=== PATIENT | female | born 1945 | race Caucasian/White ===

== ENCOUNTER 2018-03-22 05:10 | Inpatient (IN) ==
[2018-03-22] MEDS ORDERED: Metoprolol Tartrate 25 MG Tablet PO SCH (05:45)
[2018-03-22] MEDS ORDERED: Chlorhexidine 4% Topical 120 APPLIC/120 ML Bottle TOPICAL SCH (05:45)
[2018-03-22] MEDS ORDERED: Chlorhexidine Gluconate 2% 1 Pack (2 Cloths) TOPICAL SCH (05:45)
[2018-03-22] MEDS ORDERED: ceFAZolin 2 GM Premix Inj 2 GM/100 ML BAG IV.SIG SCH (06:00)
[2018-03-22] MEDS ORDERED: Vancomycin Inj 1,000 MG in Sodium Chlor 0.9% Inj 250 ML IV.SIG SCH (06:00)
[2018-03-22] MEDS ORDERED: Sodium Chlor 0.9% Inj 500 ML IV.SIG SCH (06:00)
[2018-03-22] MEDS ORDERED: Bupivacaine/Epinephrine Inj 0.25% 50 ML Vial ONE (07:10)
[2018-03-22] MEDS ORDERED: Bupivacaine/Dextrose 0.75% Inj 2 ML Ampul ONE (07:11)
[2018-03-22] MEDS ORDERED: SODIUM CHLOR 0.9% IV.SIG SCH (07:30)
[2018-03-22] MEDS ORDERED: Sodium Chlor 0.9% Inj 40 ML, Bupivacaine Liposo PF 1.3% Inj 20 ML P-ARTICULR SCH ×2 (07:30)
[2018-03-22] MEDS ORDERED: TRANEXAMIC ACID IV.SIG SCH (07:30)
[2018-03-22] MEDS ORDERED: Temazepam 15 MG Capsule PO PRN (10:02)
[2018-03-22] MEDS ORDERED: Bisacodyl 10 MG Supp RECTAL PRN (10:02)
[2018-03-22] MEDS ORDERED: Post-op Orders (for Pharmacy) OTHER STA (10:02)
--- NOTE | 2018-03-22 10:16 | P.OP ---
- Preoperative Diagnosis (1) Osteoarthritis of left knee - Postoperative Diagnosis (1) Osteoarthritis of left knee Date of procedure: 03/22/18 Procedure: Left total knee replacement arthroplasty, posterior stabilized Anesthesia: GETA Surgeon: Catalino Agnel MD [employer] Worker: Beba Bailey PA-C Operation and Findings: EBL: 50 cc INDICATION: This patient presents with long-standing arthritis of the knee. Attachment record documents conservative measures. The patient now presents for surgical treatment. NOTE: Beba Bailey PA-C was present for the entire surgical procedure as my first aid director. In my medical opinion her skill and care was necessary for proper management of this patient. TOURNIQUET TIME: 62 minutes COMPANY: [employer] FEMUR: Size 6, posterior stabilized TIBIA: Size 6, fixed-bearing PATELLA: 35 mm POLYETHYLENE INSERT: 10 mm PROCEDURE: This patient was brought the operating room and anesthetized in the supine position. The patient was positioned supine on the table. The tourniquet was placed about the thigh, and the leg was scrubbed with alcohol followed by Hibiclens followed by ChloraPrep and draped sterilely. A timeout was done, and antibiotics were given. After exsanguination the tourniquet was inflated to 300 mmHg. An anterior incision was made and a median parapatellar arthrotomy was performed. The patella was released laterally and subluxed allowing freehand cut of the patella which was then sized. A metal cap was placed over the exposed patellar surface for protection. A banquet pilot hole was placed in the distal femur allowing a 5 valgus cut removing mm from the distal femur. Anterior posterior and chamfer cuts were made. The posterior stabilize osteotomy was made. The attention was directed to the tibia. Retractors were positioned. The external alignment guide was used allowing the lateral tibia to be used as referencing guide and cut utilizing an oscillating saw taking care to avoid any injury to the surrounding soft tissues. This was sized properly. Trial reduction showed that the insert fit nicely. The patient had range of motion extension 0 flexion 120. A medial release was not necessary. The bony surfaces prepared. On the back table 2 packets of methylmethacrylate were mixed. The components were cemented. Excess cement was removed. The tourniquet let down and hemostasis was controlled. The final plastic insert was inserted. Range of motion was the same as previously noted. A drain was brought through a separate stab incision. The arthrotomy was repaired with interrupted #1 Vicryl suture, subcutaneous tissue 2-0 Vicryl suture and skin with metallic jess A sterile dressing was applied. Sponge counts, needle counts and instrument counts were all correct. The patient tolerated procedure well and was taken to recovery in satisfactory condition. FINDINGS: There was severe loss of bone posterior medial tibial plateau. Significant synovitis was seen consistent with an inflammatory arthropathy mixed with a combination of osteoarthritis. The final solution appeared to be excellent
[2018-03-22] MEDS ORDERED: fentaNYL Citrate Inj 100 MCG/2 ML Ampul ONE ×2 (10:41)
[2018-03-22] MEDS ORDERED: *morphine SULFATE 10 MG/ML PERIprocedure ONLY ONE (10:59)
--- NOTE | 2018-03-22 11:35 | XR ---
EXAM DATE: 03/22/2018 11:31 AM EDT AGE/SEX: 73 years / Female INDICATIONS: Post op right knee surgery. CLINICAL DATA: This is the patient's initial encounter. Patient reports that signs and symptoms have been present for 1 day and indicates a pain score of 3/10. MEDICAL/SURGICAL HISTORY: . Unobtainable. . Unobtainable. COMPARISON: No prior exams available for comparison. FINDINGS: Total knee arthroplasty is in place. The femoral, tibial, and patellar components appear intact. There are no signs of loosening or fracture. CONCLUSION: Intact total knee arthroplasty for technique. Electronically signed by: Amber Welch MD 03/22/2018 11:34 AM EDT
[2018-03-22] MEDS ORDERED: *morphine SULFATE 4 MG/ML PERIprocedure ONLY ONE (12:28)
[2018-03-22] MEDS ORDERED: HYDROmorphone PF Inj 2 MG/ML Vial ONE (12:53)
[2018-03-22] MEDS ORDERED: *Ondansetron Inj 4 MG/2 ML Vial PERIprocedural Use ONLY ONE (15:10)
[2018-03-22] MEDS ORDERED: *Promethazine Inj 25 MG/ML Vial PERIprocedural use ONLY ONE (15:22)
[2018-03-22] MEDS ORDERED: Lidocaine PF 1% Inj 5 ML Syringe INFILTRATN ONE (17:50)
[2018-03-22] MEDS ORDERED: Glycopyrrolate Inj 1 MG/5 ML Syringe IV.PUSH ONE (17:50)
[2018-03-22] MEDS ORDERED: Neostigmine Inj 5 MG/5 ML Syringe IV.PUSH ONE (17:50)
[2018-03-22] MEDS ORDERED: Phenylephrine/NS 1000 MCG/10ML Syringe IV.PUSH ONE (17:50)
[2018-03-22] MEDS ORDERED: Succinylcholine Inj 100 MG/5 ML Syringe IV.PUSH ONE (17:50)
[2018-03-22] MEDS ORDERED: Esmolol Bolus Inj 100 MG/10 ML Vial IV.PUSH ONE (17:50)
[2018-03-22] MEDS: Multivitamin/Minerals Therapeutic Tablet PO SCH (21:10)
[2018-03-22] MEDS: Senna/Docusate Sodium 8.6/50 MG Tablet PO SCH (21:10)
[2018-03-22] MEDS: Morphine Inj 4 MG/ML Vial IV.PUSH PRN (21:11)
[2018-03-23] MEDS: Morphine Inj 4 MG/ML Vial IV.PUSH PRN ×3 (00:42→07:56)
[2018-03-23] MEDS: Levothyroxine 100 MCG Tablet PO SCH (06:50)
[2018-03-23] MEDS: Multivitamin/Minerals Therapeutic Tablet PO SCH ×2 (08:00→22:20)
[2018-03-23] MEDS: Lisinopril 10 MG Tablet PO SCH (08:00)
[2018-03-23] MEDS: Senna/Docusate Sodium 8.6/50 MG Tablet PO SCH ×2 (08:00→22:19)
--- NOTE | 2018-03-23 16:25 | P.PNOP ---
Subjective Interval history: She is struggling substantially with pain. 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 Apparently her nurse spoke to her about Roxicodone. They are working on changing her medication. She denies any other leg symptoms. She has not been out of bed. She had some nausea this morning due to a headache. Physical Exam Vital signs: Vital Signs 03/22/18 20:00 03/23/18 00:00 03/23/18 04:00 Temperature 98.4 F 98.6 F 98.1 F Pulse Rate 82 76 93 H Respiratory Rate 17 17 19 Blood Pressure 137/66 162/69 H 136/65 Pulse Oximetry 99 100 98 03/23/18 08:00 03/23/18 12:00 Temperature 99.7 F H Pulse Rate 99 H Respiratory Rate 18 18 Blood Pressure 136/68 Pulse Oximetry 92 L Intake & Output 03/22/18 03/23/18 03/23/18 18:59 06:59 18:59 Intake Total 2600 / 2600 1680 / 1680 100 / 100 Output Total 150 / 150 Balance 2450 / 2450 1680 / 1680 100 / 100 Intake: IV 1560 / 1560 1200 / 1200 100 / 100 LR 1000 mL Inj 1,000 ML @ 80 1000 / 1000 100 / 100 mls/hr IV.CONT .[id number] AMAYA Rx# :[id number] LR 1000 mL Inj 1,000 ML @ 30 1000 / 1000 mls/hr IV.SIG .Q24H AMAYA Rx#: [id number] Cyklokapron Inj 947 MG In NS 110 / 110 Inj 100 ML @ 200 mls/hr IV.SIG ONCE AMAYA Rx#:[id number] Vancomycin Inj 1,000 MG In NS 250 / 250 Inj 250 ML @ 250 mls/hr IV.SIG RETAIL LOAN ORIGINATOR AMAYA Rx#:[id number] Ancef 2 GM Premix Inj 2 gm In 100 / 100 100 ml @ 200 mls/hr IV.SIG RETAIL LOAN ORIGINATOR AMAYA Rx#:[id number] Ancef Inj 1,000 MG In NS Inj 100 / 100 200 / 200 100 ML @ 200 mls/hr IV.SIG Q6H AMAYA Rx#:[id number] Oral 240 / 240 480 / 480 Anesthesia Amount 800 / 800 Output: Estimated Blood Loss 150 / 150 Other: # Voids 1 # Emeses 1 Narrative: Laying in bed NAD but anxious Not wearing brace Left LE Knee dressing c/d/i, mild swelling, no obvious erythema +motor at distal, +sens, +nvi neg homans - Constitutional no acute distress Results - Procedures Left total knee arthroplasty Assessment and Plan - Ortho Post Op Day # 1 - Assessment and Plan pod#1 s/p Left tka She is struggling with pain. They are starting her on roxicodone. PT - WBAT Left LE. I highly encouraged ROM as she is not motivated to do so. Hold dressing changes unless saturated. ASA 81mg bid. D/C planning - likely SNF wednesday as she has no assistance at home. DME written.
[2018-03-24] MEDS: Levothyroxine 100 MCG Tablet PO SCH (05:12)
[2018-03-24] MEDS: Lisinopril 10 MG Tablet PO SCH (11:13)
[2018-03-24] MEDS: Multivitamin/Minerals Therapeutic Tablet PO SCH ×2 (11:13→21:28)
[2018-03-24] MEDS: Senna/Docusate Sodium 8.6/50 MG Tablet PO SCH ×2 (11:13→21:29)
--- NOTE | 2018-03-24 17:38 | P.PNOP ---
Subjective Interval history: Doing well Cleared for d/c to snf mod pain Physical Exam Vital signs: Vital Signs 03/23/18 20:00 03/23/18 23:00 03/24/18 00:00 Temperature 99.8 F H 98.6 F Pulse Rate 107 H 100 H Respiratory Rate 17 18 17 Blood Pressure 130/60 123/67 Pulse Oximetry 93 L 92 L 03/24/18 04:00 03/24/18 05:45 03/24/18 08:00 Temperature 98.7 F 98.2 F Pulse Rate 115 H 101 H Respiratory Rate 18 18 18 Blood Pressure 134/68 123/64 Pulse Oximetry 92 L 93 L 03/24/18 12:00 Temperature 100.1 F H Pulse Rate 111 H Respiratory Rate 20 Blood Pressure 134/74 Pulse Oximetry 92 L Intake & Output 03/23/18 03/24/18 03/24/18 18:59 06:59 18:59 Intake Total 2049 Balance 2049 Weight 94.4 kg Intake: IV 100 / 100 1999 LR 1000 mL Inj 1,000 ML @ 80 100 / 100 1000 / 1000 mls/hr IV.CONT .[id number] AMAYA Rx# :[id number] LR 1000 mL Inj 1,000 ML @ 30 1000 / 1000 mls/hr IV.SIG .Q24H AMAYA Rx#: [id number] Oral 1949 Other: # Voids 2 5 Date of Last Bowel Movement 03/24/18 # Bowel Movements 0 Narrative: Laying in bed NAD but anxious Not wearing brace Left LE Knee dressing c/d/i, mild swelling, no obvious erythema +motor at distal, +sens, +nvi neg homans Results - Procedures Left total knee arthroplasty Assessment and Plan - Assessment and Plan pod#2 s/p Left tka Better on roxycodone. PT - WBAT Left LE. I highly encouraged ROM as she is not motivated to do so. Hold dressing changes unless saturated. ASA 81mg bid. D/C planning - likely SNF today as she has no assistance at home. DME written. Meds written
[2018-03-25] MEDS: Levothyroxine 100 MCG Tablet PO SCH (05:35)
--- NOTE | 2018-03-25 07:38 | P.DS ---
Date of admission: 03/22/18 05:10 Primary care physician: Benito Espinoza MD Attending physician on discharge: Catalino Angel Anticipated date of discharge: 03/24/18 DS: Medications - Discharge Medications Prescriptions: aspirin 81 mg PO BID #60 tab tramadol [Ultram] 50 mg PO Q4H PRN #42 tab PRN Reason: Acute Pain DS: Summary Hospital Course: Surgical treatment was performed on the day of admission without complication. The patient recovered well in PACU and was transferred to the orthopedic floor. IV and oral medications were supplied. The patient was compliant with physical therapy and all precautions. After ___ days she was found to be stable and discharged to a ____. She was encouraged to continue physical therapy, to elevate the operative limb and ice it 2-3 times daily, and to pursue a high fiber diet. She was given prescriptions of [place] 7.5mg and ASA 81mg twice daily. - Time Spent with Patient Total time spent providing and/or coordinating discharge services: Greater than 30 minutes - Quality: VTE Deep Vein Thrombosis/Pulmonary Embolism Present on Admission: No Exam Vital signs: Vital Signs 03/24/18 08:00 03/24/18 12:00 03/24/18 16:00 Temperature 98.2 F 100.1 F H 98.7 F Pulse Rate 101 H 111 H 102 H Respiratory Rate 18 20 20 Blood Pressure 123/64 134/74 93/52 L Pulse Oximetry 93 L 92 L 92 L 03/24/18 20:00 03/25/18 00:00 Temperature 100 F H 97.8 F Pulse Rate 95 H 91 H Respiratory Rate 18 18 Blood Pressure 102/59 L 93/54 L Pulse Oximetry 95 93 L Intake & Output 03/24/18 03/25/18 03/25/18 18:59 06:59 18:59 Intake Total 2240 / 2240 Balance 2240 / 2240 Weight 94 kg Intake: IV 1999 / 1999 LR 1000 mL Inj 1,000 ML @ 80 1000 / 1000 mls/hr IV.CONT .[id number] AMAYA Rx# :[id number] LR 1000 mL Inj 1,000 ML @ 30 1000 / 1000 mls/hr IV.SIG .Q24H AMAYA Rx#: [id number] Oral 240 / 240 Other: # Voids 1 Date of Last Bowel Movement 03/24/18 03/24/18 Results Procedures completed during hospitalization: Left total knee arthroplasty Labs on day of discharge: Labs from last 24 hours 03/22/18 06:15 MTS Gel Crossmatch See Detail - Impressions ITS Impressions Knee X-Ray 03/22/18 10:03 CONCLUSION: Intact total knee arthroplasty for technique. Discharge Plan - Discharge Disposition Patient Disposition: Discharge to SNF - Discharge Condition Condition: Good - Discharge Order Discharge Orders: Discharge Order (Routine); Ordered 03/25/18 Ordered By: Catalino Angel - Physicians Team Primary Care Provider: Benito Espinoza Attending Provider: Catalino Angel Other Providers: Yan Heredia ; [facility],[place] - Rxs /Orders / Referrals /Forms Prescriptions: New aspirin 81 mg Tablet,Chewable 81 mg PO BID Qty: 60 RF: 0 tramadol [Ultram] 50 mg Tablet 50 mg PO Q4H PRN (Reason: Acute Pain) Qty: 42 RF: 0 Continue cetirizine [Zyrtec] 10 mg Capsule 10 mg PO DAILY folic acid 1 mg Tablet 2 mg PO DAILY levothyroxine 100 mcg Capsule 100 mcg PO DAILY lisinopril-hydrochlorothiazide 10-12.5 mg Tablet 1 tab PO DAILY methotrexate sodium 10 mg Tablet 10 mg PO QWEEK [id number]-fish oil [Brohman-3 Fish Oil] 300-1,000 mg Capsule 1,200 mg PO DAILY omeprazole 40 mg Capsule,Delayed Release(Dr/Ec) 40 mg PO DAILY Discontinued aspirin [Aspir-81] 81 mg Tablet,Delayed Release (Dr/Ec) 81 mg PO DAILY Ambulatory Orders / Order Sets / DME: Adjustable Commode 3-in-1 (1 each) (Routine) Location: Determined by Patient Ordered By: Brooke Triplett CPM - Continuous Passive Motion Machine (1 each) (Routine) Location: Determined by Patient Ordered By: Brooke Triplett Walker With Front Wheels (1 each) (Routine) Location: Determined by Patient Ordered By: Catalino Angel Referrals: Benito Espinoza MD [Primary Care Provider] - See Instructions - Discharge Instructions Patient Printed Instructions: Aspirin (By mouth), Tramadol (By mouth), How to Choose and Use a Walker (GEN), Precautions after Total Joint Replacement Surgery (DC), Fall Prevention (GEN), Joint Replacement Surgery (DC), Continuous Passive Motion Machine (DC), Knee Replacement (DC) Additional Instructions: PRESCRIPTIONS PROVIDED AT TIME OF DISCHARGE. FOLLOW UP WITH ORTHOPEDICS IN 1-2 WEEKS. PLEASE CALL TO SCHEDULE APPOINTMENT. REPORT ANY SIGNS OF INFECTION AT THE SURGICAL SITE SUCH REDNESS, DRAINAGE, OR SWELLING. DO NOT CHANGE SURGICAL DRESSING. - Post Discharge Care Plan Care Plan Goals: Discharge Care Plan Goals for Total Knee Replacement You have undergone left knee replacement surgery. Your doctor replaced your painful joint with an artificial joint to relieve pain and restore movement. Here are some goals to help you heal well. Directions to Meet your Goals: 1. Activity & Exercises: * Take pain medicine as directed by your doctor. * Sit in chairs with arms. The arms make it easier for you to stand up or sit down. * Dont sit for more than 30 to 45 minutes at one time. * Nap if you are tired, but dont stay in bed all day. * Sleep with a pillow under your ankle, not your knee. Be sure to change the position of your leg during the night. * Wear the support stockings you were given in the hospital as directed by your surgeon. 2. Prevent Falls/Injury: The moya to successful recovery is movement with walking and exercising your knee as directed by your doctor. * Arrange your household to keep the items you need handy. Keep everything else out of the way. * Remove items that may cause you to fall, such as throw rugs and electrical cords. * Use nonslip bath mats, grab bars, an elevated toilet seat, and a shower chair in your bathroom * Sit on a shower stool or chair when you shower to keep from falling. * Until your balance, flexibility, and strength improve, use a cane, crutches, a walker, handrails, or someone to help you. * Keep your hands free by using a backpack, coty pack, apron, or pockets to carry things * Walk up and down stairs with support. Try one step at a time. Use the railing if possible. * Dont drive until your doctor says its OK. * Dont drive while you are taking opioid pain medicine. 3. Precautions: * Prevent infection. Any infection will need to be treated immediately. Call your doctor right away if you think you might have an infection. * Tell your dentist that you have an artificial joint and take antibiotics as prescribed before any dental work. * Tell all your healthcare providers about your artificial joint before any medical procedure. * Maintain a healthy weight. Get help to lose any extra pounds. Added body weight puts stress on the knee. * Your medications may include blood-thinning medicine to prevent blood clots or antibiotics to prevent infection-prevent any falls or cuts 4. Incision Care: * Prevent infection by washing your hands often. If an infection occurs, it will need to be treated right away. * Call your doctor right away if you think you may have an infection. Symptoms include a fever or an incision that leaks white, green, or yellow fluid. * Don't soak your incision in water until your doctor says its OK. This means no hot tubs, bathtubs, or swimming pools. * Follow your doctor's instructions for changing the dressing. Do not change the dressing unless it is saturated or if there is extensive redness that the nursing staff is concerned about. * Dont rub the incision, or apply creams or lotions to it. * If you notice any redness or drainage around the bandage site, contact your surgeon's office immediately. 5. Follow-Up: Do Not miss your follow-up appointment. Keep up with all your appointments and yearly check ups When to call your doctor: Call your doctor right away if you have: Fever of 100.4F (38C) or higher, or as directed by your doctor Shaking chills Stiffness, or inability to move the knee Increased swelling in your leg Increased redness, tenderness, or swelling in or around the knee incision Drainage from the knee incision Increased knee pain Call 911: Call 911 right away if you have: Chest pain Shortness of breath Any pain or tenderness in your calf
--- NOTE | 2018-03-25 07:59 | P.PNOP ---
Subjective Interval history: Pain somewhat controlled today. Deep aching in the knee. No radiating pain. No other concerns. Ready to discharge today. Physical Exam Vital signs: Vital Signs 03/24/18 08:00 03/24/18 12:00 03/24/18 16:00 Temperature 98.2 F 100.1 F H 98.7 F Pulse Rate 101 H 111 H 102 H Respiratory Rate 18 20 20 Blood Pressure 123/64 134/74 93/52 L Pulse Oximetry 93 L 92 L 92 L 03/24/18 20:00 03/25/18 00:00 Temperature 100 F H 97.8 F Pulse Rate 95 H 91 H Respiratory Rate 18 18 Blood Pressure 102/59 L 93/54 L Pulse Oximetry 95 93 L Intake & Output 03/24/18 03/25/18 03/25/18 18:59 06:59 18:59 Intake Total 2240 / 2240 Balance 2240 / 2240 Weight 94 kg Intake: IV 2000 / 2000 LR 1000 mL Inj 1,000 ML @ 80 1000 / 1000 mls/hr IV.CONT .[id number] AMAYA Rx# :[id number] LR 1000 mL Inj 1,000 ML @ 30 1000 / 1000 mls/hr IV.SIG .Q24H AMAYA Rx#: [id number] Oral 240 / 240 Other: # Voids 1 Date of Last Bowel Movement 03/24/18 03/24/18 Narrative: Laying in bed NAD Brace on left knee Left LE Knee dressing c/d/i, mild swelling, no obvious erythema +motor at distal, +sens, +nvi neg homans - Constitutional no acute distress Results - Labs Laboratory Results - last 24 hr 03/22/18 06:15 MTS Gel Crossmatch See Detail - Procedures Left total knee arthroplasty Assessment and Plan - Ortho Post Op Day # 3 - Assessment and Plan pod#3 s/p Left tka Better on roxycodone. Able to get some rest last night. PT - WBAT Left LE. I highly encouraged ROM as she is not motivated to do so. Hold dressing changes unless saturated. ASA 81mg bid. D/C planning - d/c to snf today. DME written. Meds written F/U in 2 weeks as scheduled.
[2018-03-25] MEDS: Multivitamin/Minerals Therapeutic Tablet PO SCH (09:44)
[2018-03-25] MEDS: Lisinopril 10 MG Tablet PO SCH (09:44)
[2018-03-25] MEDS: Senna/Docusate Sodium 8.6/50 MG Tablet PO SCH (09:44)
== END 2018-03-25 17:51 ==
LOC: HSDI 05:10 → N06 16:35
PROVIDERS: ADMIT Orthopaedic Surgery Orthopaedic Surgery of the Spine; ATTEND Orthopaedic Surgery Orthopaedic Surgery of the Spine